=== PATIENT | male | born 1960 | race Caucasian/White ===

== ENCOUNTER 2018-01-29 11:43 | Emergency (ER) | payer SELFPAY ==
[~2018-01-29] VITALS: Ht 170.2 cm; Wt 65.0 kg
[2018-01-29] MEDS ORDERED: HYDROcodone/APAP 10/325 MG TABLET ONE (12:28)
[2018-01-29] MEDS ORDERED: HYDROcodone/APAP 10/325 MG TABLET PO ONE (12:30)
[2018-01-29 12:51] LABS: ALBUMIN 3.3 g/dL (3.4-5.0); ANION GAP 5 mmol/L (5-15); CALCIUM 8.9 mg/dL (8.5-10.1); CHLORIDE 106 mmol/L (98-107); CREATININE 0.85 mg/dL (0.7-1.3)
[2018-01-29 12:52] LABS: BASOPHILS # (AUTO) 0.04 x10^3/uL (0-0.1); BASOPHILS % (AUTO) 0 % (0-1); EOSINOPHILS # (AUTO) 0.13 x10^3/uL (0-0.4); EOSINOPHILS % (AUTO) 2 % (1-7); LYMPHOCYTES # (AUTO) 2.07 x10^3/uL (1-3.4); LYMPHOCYTES % (AUTO) 25 % (22-44); MD NO; MEAN CORPUSCULAR HEMOGLOBIN 31.7 pg (27.5-34.5); MEAN CORPUSCULAR VOLUME 96.1 fL (81-97); MEAN PLATELET VOLUME 7.7 fL (7.4-10.4); MONOCYTES # (AUTO) 0.88 x10^3/uL (0.2-0.8); MONOCYTES % (AUTO) 10 % (2-9); NEUTROPHILS # (AUTO) 5.36 x10^3/uL (1.8-6.8); NEUTROPHILS % (AUTO) 63 % (42-75); PLATELET COUNT 321 x10^3/uL (130-400); RED BLOOD COUNT 4.65 x10^6/uL (4.38-5.82); RED CELL DISTRIBUTION WIDTH 14.9 % (9.4-14.8)
[2018-01-29 12:55] LABS: TROPONIN I < 0.015 ng/mL (0.000-0.045)
[2018-01-29 14:12] VITALS: BP 122/70
[2018-01-29] MEDS ORDERED: OMNIPAQUE 350 MG/ML, 75ML BOTTLE ONE (14:29)
== END 2018-01-29 15:53 | disposition home or self-care (01) ==
LOC: ED 15:52
DX: S22.41XA Multiple fractures of ribs, right side, initial encounter for closed fracture (principal); F17.200 Nicotine dependence, unspecified, uncomplicated; W01.10XA Fall on same level from slipping, tripping and stumbling with subsequent striking against unspecified object, initial encounter; Y93.89 Activity, other specified; Y92.009 Unspecified place in unspecified non-institutional (private) residence as the place of occurrence of the external cause; Y99.8 Other external cause status
CPT/HCPCS: 36415; 71046; 71260; 80048; 82040; 83605; 84484; 85025; 99284; Q9967